=== PATIENT | female | born 1990 | race Caucasian/White ===

== ENCOUNTER 2025-09-17 05:19 | Inpatient (IN) ==
[2025-09-17 06:00] LABS: HCT - HEMATOCRIT 31.8 % (37.0-47.0); HGB - HEMOGLOBIN 10.0 g/dL (12.0-16.0); MEAN PLATELET VOLUME 9.6 fL (7.9-10.8); NRBC ABSOLUTE COUNT (AUTO) 0.00 x10^3/uL; NUCLEATED RED BLOOD CELLS AUTO 0.0 /100WBC; PLT - PLATELET COUNT 275 10^3/uL (130-450); RED CELL DISTRIBUTION WIDTH 13.7 % (12.0-15.0)
[2025-09-17] MEDS: CITRIC ACID/SODIUM CITRATE 15 ML UDC PO ONE (06:00)
[2025-09-17] MEDS: LACTATED RINGERS 1,000 ML IV SCH (06:00)
[2025-09-17 06:19] LABS: ALT ALANINE AMINOTRANSFERASE 8.0 IU/L (10-60); AST ASPARTATE AMINOTRANSFERASE 12.0 IU/L (10-42); BUN - BLOOD UREA NITROGEN 7.0 mg/dL (6-20); CARBON DIOXIDE - CO2 22.0 mmol/L (21-32); CREATININE 0.5 mg/dL (0.6-1.3); GFR - MDRD 140.0 (>89)
[2025-09-17] MEDS ORDERED: ePHEDrine 50 MG/ML VIAL IVP ONE (07:00)
[2025-09-17] MEDS ORDERED: SODIUM CHLORIDE 0.9% 10 ML VIAL ONE (07:00)
[2025-09-17] MEDS ORDERED: PHENYLEPHRINE HCL 0.5 MG/5 ML AMPULE ONE (07:00)
[2025-09-17] MEDS ORDERED: OXYTOCIN/SODIUM CHLORIDE 500 ML IV ONE (07:01)
--- NOTE | 2025-09-17 07:01 | ANESTHESIA PROCEDURE NOTE ---
Pre-Anesthesia VS, & Labs Diagnosis Surgical Diagnosis:: previous Procedure Procedure: repeat Vitals Vital Signs: Temp Pulse Resp BP Pulse Ox 36.5 C 69 18 130/93 H 97 09/17/25 06:13 09/17/25 06:13 09/17/25 06:13 09/17/25 06:13 09/17/25 05:26 NPO NPO: >8 hours Is Patient ?: Yes Lab Results Current Lab Results: Laboratory Tests 09/17/25 05:50: WBC 8.1, RBC 3.94 L, Hgb 10.0 L, Hct 31.8 L, MCV 80.7 L, MCH 25.4 L, MCHC 31.4 L, RDW 13.7, Plt Count 275, MPV 9.6, Neut # (Auto) 6.0, Lymph # (Auto) 1.3 L, [place] # (Auto) 0.6, Eos # (Auto) 0.1, Baso # (Auto) 0.0, Absolute Nucleated RBC 0.00, Nucleated RBC % 0.0, Sodium 137, Potassium 3.9, Chloride 107, Carbon Dioxide 22, Anion Gap 8.0, BUN 7, Creatinine 0.5 L, Estimated GFR (MDRD) 140, Glucose 97, Calcium 8.7, Total Bilirubin 0.3, AST 12, ALT 8 L, Alkaline Phosphatase 92, Total Protein 6.4, Albumin 3.2, Globulin 3.2, Albumin/Globulin Ratio 1.0 Lab results reviewed: Yes 09/17/25 05:50 09/17/25 05:50 Meds/Allgy Home Medications Ambulatory Orders Medication Instructions Recorded Confirmed metoclopramide HCl 5 mg tablet 5 mg PO Q6H PRN nausea and 05/22/25 09/12/25 (Reglan) vomiting #14 tabs PNV no.[id number] acid PO 05/29/25 09/12/25 Allergies Allergies Allergy/AdvReac Type Severity Reaction Status Date / Time No Known Drug Allergies Allergy Verified 09/12/25 09:10 PFSH Active Problems All Active Problems (Updated 09/10/25 @ 18:38 by Misbah Chapman MD) Headache (Acute) 36 weeks gestation of (Acute) Supervision of high risk in third trimester (Acute) Pre-eclampsia affecting , antepartum (Acute) Maternal care due to low transverse uterine scar from previous delivery (Acute) (Acute) Medical History Medical History (Updated 09/10/25 @ 18:38 by Misbah Chapman MD) Elevated BP reading w/ no diagnosis of HTN Isolated proteinuria Supervision of normal in second trimester Surgical History Surgical History (Updated 05/29/25 @ 11:06 by Vita Oneill MA) Hx laparoscopic cholecystectomy H/O: Family History Family History (Updated 05/29/25 @ 11:06 by Vita Oneill MA) Other Adopted Social History Social History (Updated 05/29/25 @ 10:58 by Vita Oneill MA) Smoking Status: Never smoker Do you dip or chew tobacco?: No Do you vape?: No Do you feel safe in your home environment?: Yes ETOH Use: None Anesthesia Exam (Expanded) Exam General: Alert, Oriented x3 and Cooperative Dental: WNL Mouth Openin Fingerbreadth Neck Mobility: Normal Mallampati classification: II Thyromental Distance: 4-6 cm Respiratory: Lungs clear, Normal breath sounds and No respiratory distress Cardiovascular: Regular rate Neurological: Normal speech Mental/Cognitive Status: Alert/Oriented X3 and Normal for patient Cognitive Status: Within normal limits Exam Exam Vital Signs: Vital Signs x48h Temp Pulse Resp BP BP Pulse Ox 09/17/25 06:13 36.5 C 69 18 130/93 H 09/17/25 05:26 36.5 C 18 130/93 H 97 Plan Plan Anesthesia Type: Spinal and Transverse Abdominis Plane (TAP) Block Regional Block: Per Surgeon's request for Post Op pain control Consent for Procedure(s) Verified and Reviewed: Yes Code Status: Attempt Resuscitation ASA Classification ASA classification: 2-Mild systemic disease Is this case an emergency?: No
--- NOTE | 2025-09-17 07:13 | HISTORY & PHYSICAL EXAMINATION ---
Admit History Visit Reason Visit Reason: Other (Scheduled repeat ) : 5 Parity: 1 : 3 Care: positive [facility] Risk/History: positive Previous Complications This : positive Pre-eclampsia Smoking Status: Former smoker Mother's Labs Mother's Blood Type: positive A Mother's RH: positive Positive GBS: positive Group B Step Negative Rubella Status: positive Immune Other Maternal History Other Maternal History: Patient is a 34 yo A3 at 37+0 wks here for scheduled repeat . She has been diagnosed with preE based on mildly elevated BP's and proteinuria. She is not on antihypertensive medications and has had no severe features. She feels well today and denies leakage of fluid, vaginal bleeding, or painful/regular contractions. G1: 2017 SAB 6 weeks G2: 2018 C/S "Prince" epidural to spinal to general. Primary c/s arreset of descent after IOL for NRFHT (records from [place], [place] reviewed: periop course complicated by bilateral hysterotomy extensions and postop anemia/tachycardia; she did not receive a blood transfusion) G3: 2021 early SAB - conceived with Letrozole G4: 2022 early SAB- conceived with Letrozole G5- Current - no ovulation induction methods but on GLP-1- baby boy "Jay." Partner/FOB: : [facility] Hx: Non significant Surgical Hx: (2018), gallbladder (2013) Social Hx: Monogamous with male partner Ander who works active duty [employer]. Stopped drinking alcohol due to . Denies current use of tobacco, marijuana or other recreational drugs. Non-smoker. Safe in current relationship. Family Hx: Adopted Allergies:NKDA Medications: PNV , unisom, B6, reglan Problems: 1. Primary C/S 2018, arrest of descent after IOL for NRFHT 2. Preeclampsia: - Elevated blood pressure without the diagnosis of hypertension (diagnosed 09/04/2025) - Proteinuria (diagnosed 08/31/2025) - Preeclampsia (diagnosed 09/06/2015 after meeting BP criteria) 3. Pelvic pain, dyspareunia, chronic constipation - assess for endometriosis, pelvic floor spasm Consults: Repeat C/S: Consult with Dr. Chapman 07/05/2025 Elevated blood pressure without diagnosis of HTN in combination with proteinuria LMP: unknown RICHELLE by LMP: U/S: @ 8.2wks dates with RICHELLE 10/08/2025 Final RICHELLE: 10/08/2025 Pre- weight: 150 BMI: 37.0 Blood type: A positive Antibody screen: negative CBC: [id number] HCT42.5 HGB 13.6 Rubella: Immune VZV: immune HBsAg: NR Hep C: NR RPR/AB-EIA: NR HIV: NR Flu: declines 07/03/2025 COVID: declines 07/03/2025 PAP: 09/2022 WNL, HPV negative GC/CT: Negative HSV: denies in self and partner Genetic screening/counselling: QNATAL advanced - negative AFP: FAS: 05/29/2025 Placenta: Anterior Cord: 3VC GWEN: 14.6cm EFW: 95.7g; 40%tile 50gm GCT: 134 TDAP: will think about Breast Pump: 07/30/2025 3rd trimester H/H PLT 11.4/36.6 274 3rd trimester RPR NR RSV: 08/31/2025 GBS: 09/04 neg Delivery plan: RCS scheduled 10/02/2025; rescheduled to 09/17 (w/ Dr. Mendoza) after diagnosis of preE contraception counselling date and plan: HPI Current : Current Para 1 Vital Signs Temperature 36.5 C 09/17/25 06:13 Pulse Rate 69 09/17/25 06:13 Respiratory Rate 18 09/17/25 06:13 Blood Pressure 130/93 H 09/17/25 06:13 O2 Saturation 97 09/17/25 05:26 NST Procedure NST Procedure: NST Procedure Start Date 09/17/25 Start Time 05:30 Stop Time 06:30 Vibroacoustic Stimulation Used No Patient States Movement Yes Meds/Allgy Home Medications Ambulatory Orders Medication Instructions Recorded Confirmed metoclopramide HCl 5 mg tablet 5 mg PO Q6H PRN nausea and 05/22/25 09/12/25 (Reglan) vomiting #14 tabs PNV no.[id number] acid PO 05/29/25 09/12/25 Allergies Allergies Allergy/AdvReac Type Severity Reaction Status Date / Time No Known Drug Allergies Allergy Verified 09/12/25 09:10 PFSH Active Problems All Active Problems (Updated 09/10/25 @ 18:38 by Misbah Chapman MD) Headache (Acute) 36 weeks gestation of (Acute) Supervision of high risk in third trimester (Acute) Pre-eclampsia affecting , antepartum (Acute) Maternal care due to low transverse uterine scar from previous delivery (Acute) (Acute) Medical History Medical History (Updated 09/10/25 @ 18:38 by Misbah Chapman MD) Elevated BP reading w/ no diagnosis of HTN Isolated proteinuria Supervision of normal in second trimester Surgical History Surgical History (Updated 05/29/25 @ 11:06 by Vita Oneill MA) Hx laparoscopic cholecystectomy H/O: Family History Family History (Updated 05/29/25 @ 11:06 by Vita Oneill MA) Other Adopted Social History Social History (Updated 05/29/25 @ 10:58 by Vita Oneill MA) Smoking Status: Never smoker Do you dip or chew tobacco?: No Do you vape?: No Do you feel safe in your home environment?: Yes ETOH Use: None Review of Systems Status of ROS: 10 or more systems reviewed and unremarkable except as noted in history and below Physical Abdominal Exam Vital Signs: Temp Pulse Resp BP Pulse Ox 36.5 C 69 18 130/93 H 97 09/17/25 06:13 09/17/25 06:13 09/17/25 06:13 09/17/25 06:13 09/17/25 05:26 General: Awake and alert, no acute distress Lungs: Normal respiratory effort Heart: Reg rate Abd: Gravid, nontender Ext: Trace edema Contraction Frequency (min/apart): Irreg, infrequent Monitoring Heart Rate Baseline: 130s Strip Review: positive Category I Vaginal Exam Membranes: positive Membranes intact Speculum Exam Speculum Exam Performed: positive No Plan for Labor Plan For Labor I expect patient to be DC'd or transferred within 96 hours.: Yes Conclusion/Plan Problem List (1) Maternal care due to low transverse uterine scar from previous delivery: Plan: at 37+0 wks with hx prior and dx of preE without severe features. - Admit for repeat - CBC, CMP obtained - Preop anbiotics: Ancef 2 gm IV OCTOR - VTE prophy: SCDs in OR; early ambulation postop - PPH risk: Mod - Avoid methergine as uterotonic. (2) Pre-eclampsia affecting , antepartum: Lab Results Lab results reviewed: Yes 09/17/25 05:50 09/17/25 05:50
[2025-09-17] MEDS ORDERED: fentaNYL 100 MCG/2 ML VIAL ONE (07:22)
[2025-09-17] MEDS ORDERED: ONDANSETRON 4 MG/2 ML VIAL IVP PRN (07:25)
[2025-09-17] MEDS ORDERED: fentaNYL 100 MCG/2 ML VIAL IVP PRN (07:25)
[2025-09-17] MEDS ORDERED: HYDROmorphone 0.5 MG/0.5 ML SYRINGE IVP PRN (07:25)
[2025-09-17] MEDS ORDERED: ATROPINE ABBOJECT 1 MG/10 ML SYRINGE IVP PRN (07:25)
[2025-09-17] MEDS ORDERED: NALOXONE 0.4 MG/ML VIAL IVP PRN ×2 (07:25→08:56)
[2025-09-17] MEDS ORDERED: ePHEDrine 50 MG/ML VIAL IVP PRN (07:25)
[2025-09-17] MEDS ORDERED: METOCLOPRAMIDE 10 MG/2 ML VIAL IVP PRN (07:25)
[2025-09-17] MEDS ORDERED: MORPHINE 2 MG/ML CARPUJECT IVP PRN (07:25)
[2025-09-17] MEDS ORDERED: ONDANSETRON 4 MG/2 ML VIAL ONE (07:47)
[2025-09-17] MEDS ORDERED: METHYLERGONOVINE 0.2 MG/ML VIAL ONE (07:48)
[2025-09-17] MEDS ORDERED: CARBOPROST TROMETHAMINE 250 MCG/ML VIAL IM ONE (07:48)
[2025-09-17] MEDS ORDERED: ACETAMINOPHEN 1,000 MG/100 ML 1,000 MG/100 ML BAG IV ONE (07:59)
[2025-09-17] MEDS ORDERED: LACTATED RINGERS 1,000 ML IV SCH (08:00)
[2025-09-17] MEDS ORDERED: ROPIVACAINE 0.5% PF 20 ML VIAL ONE (08:19)
[2025-09-17] MEDS ORDERED: KETOROLAC 30 MG/ML VIAL ONE (08:40)
[2025-09-17] MEDS ORDERED: hydrALAZINE INJ 20 MG/ML VIAL IVP PRN ×2 (08:56)
[2025-09-17] MEDS ORDERED: OXYTOCIN/SODIUM CHLORIDE 500 ML IV PRN (08:56)
[2025-09-17] MEDS ORDERED: LABETALOL 20 MG/4 ML SYRINGE IVP PRN ×3 (08:56)
[2025-09-17] MEDS ORDERED: TRANEXAMIC ACID IN NACL 1,000 MG/100 ML BAG IV PRN (08:56)
[2025-09-17] MEDS ORDERED: OXYTOCIN 10 UNIT/ML VIAL IM PRN (08:56)
[2025-09-17] MEDS ORDERED: CALCIUM CARBONATE CHEW 500 MG TABLET PO PRN (08:56)
[2025-09-17] MEDS ORDERED: CARBOPROST TROMETHAMINE 250 MCG/ML VIAL IM PRN (08:56)
[2025-09-17] MEDS: ACETAMINOPHEN 500 MG TABLET PO SCH (09:00)
--- NOTE | 2025-09-17 09:06 | OPERATIVE REPORT ---
Operative Report General Admit Date: 09/17/25 Procedure Data: Operation Date: 09/17/25 07:30 Proposed Procedures p Section(Not Applicable) - Elaine Mendoza MD Actual Procedures p Section(Not Applicable) - Elaine Mendoza MD Pre-Op Diagnosis: section Anesthesia Type Spinal Case Staff Anesthesia Provider: Stephen Diaz Assisting Provider: Lulu Ramirez Case Times Procedure Start: 09/17/25 08:06 Time out: 09/17/25 08:03 Pre-Op Diagnosis: Pre-eclampsia, prior , 37 wks Post Op Diagnosis: Same now s/p repeat LTCS Procedure Note Pathology: None Indications: 34 yo A3 at 37+0 wks with hx prior , here for repeat. She has pre- eclampsia without severe features, so delivery recommended at 37 wks. Findings: Mild fascial adhesions. No intra-peritoneal adhesions present. Lower uterine segment thinned but not dehisced. Normal-appearing ovaries and tubes. Uterus firmed with Pitocin. No lesions or masses. Viable male infant delivered from LOT position with single nuchal cord x 1. He cried on the maternal abdomen and had excellent tone and color. Placenta delivered intact and was normal in appearance. Complications: None Other Other Information/Narrative: Preoperative Diagnosis: - Pre-eclampsia without severe features - Prior low transverse - at 37 weeks gestation Postoperative Diagnosis: - Same as above now s/p repeat low transverse Procedure: Repeat low-transverse with two-layer hysterotomy closure Surgeon: Dr. Elaine Mendoza Treasury Specialist: Lulu Ramirez CNM Anesthesia: - Spinal - TAP Block Qualitative Blood Loss: 542 ml IV Fluids: 700 ml Urine Output: 350 ml Medications: - Ancef 2 gm IV - Pitocin bolus Specimen: Cord blood Indications: 34 yo A3 at 37+0 wks with hx prior , here for repeat. She has pre- eclampsia without severe features, so delivery recommended at 37 wks. Expectations and risks were discussed, and surgical consent form reviewed and signed. Findings: Mild fascial adhesions. No intra-peritoneal adhesions present. Lower uterine segment thinned but not dehisced. Normal-appearing ovaries and tubes. Uterus firmed with Pitocin. No lesions or masses. Viable male infant delivered at 0813 from LOT position with single nuchal cord x 1. Apgars were 8 at 1 minute, 10 at 5 minutes, and weight was 2951 gm. He cried on the maternal abdomen and had excellent tone and color. Placenta delivered intact and was normal in appearance. Operative Technique: The patient was taken to the operating room where spinal anesthesia was administered without difficulty. Romero catheter was inserted. The abdomen was prepped and draped in sterile fashion, and surgical Time Out performed. After confirming adequate anesthesia with an Allis clamp, a Pfannenstiel incision was created sharply 3 cm above the suprapubic bone, over her old scar. The subcutaneous tissue was incised sharply. The fascia was sharply incised at the midline, then extended laterally bluntly and with some sharp dissection at the left side. The superior rectus fascia was grasped with Fabricio clamps at the midline and tented up while the rectus muscle was bluntly and sharply dissected off posteriorly. The same was then performed at the inferior rectus fascia. The muscles were bluntly . A clear window of the anterior peritoneum was grasped and entered. This incision was then extended with gentle stretch. Dmitry retractor was placed. The lower uterine segment was incised in low transverse fashion then bluntly enlarged in a cranial-caudal direction. Clear amniotic fluid was noted at the time of membrane rupture. The infants head was grasped and delivered through the incision. Loose nuchal cord x 1 was reduced over the occiput Shoulders and corpus delivered easily thereafter. He had good tone and respiratory effort and was dried and stimulated. Cord was clamped and cut at one minute, th en he was taken to the warmer. Cord blood was obtained, then the placenta delivered by expression and uterine massage. Uterine tone was addressed with medications as noted above. The hysterotomy was closed with a running, locked suture of 0 Chromic followed by an imbricating suture of 0 Chromic. A figure of eight suture was placed at the left apex to achieve hemostasis. The peritoneal gutters were wiped, and the uterine incision re-examined and noted to be hemostatic. The peritoneum and muscles were reapproximated with running non-locked suture of 2-0 Vicryl. The rectus muscle was then examined and hemostatic after application of cautery where needed. The rectus fascia was closed with a running non-locked suture of 0 Vicryl. The subcutaneous tissue was irrigated then reapproximated with running, nonlocked 2-0 Vicryl. The skin was then closed in a subcuticular fashion using 4-0 Monocryl. Mastisol, steri- strips, and dressing were then applied. Sponge, lap, and needle count were completed and correct. The patient tolerated the procedure well, overall. TAP block was performed by Anesthesia, and she was subsequently moved to the recovery room in stable condition. Treasury Specialist Attestation: In this non-teaching hospital, a surgical instrument technician (named above) was needed to perform surgical sales representative duties. The behavioral modification assistant was critical with retraction of tissue, cutting suture, gently stretching the peritoneum and abdominal wall, applying pressure on the upper abdomen and uterus to deliver the baby, performing initial resuscitative steps for the baby on the maternal abdomen, and assisting with closure of the surgical layers and skin.
--- NOTE | 2025-09-17 09:42 | ANESTHESIA POST OP EVALUATION ---
Anesthesia Post Eval Post Anesthesia Eval Vitals: Last Vital Signs Temp 36.6 C 09/17/25 09:17 Pulse 67 09/17/25 09:37 Resp 23 09/17/25 09:37 BP 125/84 09/17/25 09:37 Pulse Ox 97 09/17/25 09:37 CV Function Including HR & BP: Stable Pain Control: Satisfactory Nausea & Vomiting: Negative Mental Status: Baseline Respiratory Status: Airway Patent Hydration Status: Satisfactory
[2025-09-17] MEDS: oxyCODONE 5 MG TABLET PO PRN (11:53)
[2025-09-17] MEDS ORDERED: KETOROLAC 30 MG/ML VIAL IVP SCH (12:00)
[2025-09-17] MEDS: SIMETHICONE CHEW 80 MG TABLET PO PRN (13:27)
[2025-09-17] MEDS: ceFAZolin (2G) 2 GM in SODIUM CHLORIDE 0.9% MINIBAG 100 ML IV ONE (13:48)
[2025-09-17] MEDS: DOCUSATE SODIUM 100 MG CAPSULE PO SCH (13:50)
[2025-09-17] MEDS: KETOROLAC 30 MG/ML VIAL IVP SCH (14:47)
[2025-09-18 06:00] LABS: HCT - HEMATOCRIT 28.2 % (37.0-47.0); HGB - HEMOGLOBIN 8.6 g/dL (12.0-16.0); MEAN PLATELET VOLUME 9.2 fL (7.9-10.8); PLT - PLATELET COUNT 211.0 10^3/uL (130-450); RED CELL DISTRIBUTION WIDTH 13.9 % (12.0-15.0)
[2025-09-18 06:30] LABS: ALT ALANINE AMINOTRANSFERASE 8.0 IU/L (10-60); AST ASPARTATE AMINOTRANSFERASE 12.0 IU/L (10-42); BUN - BLOOD UREA NITROGEN 6.0 mg/dL (6-20); CARBON DIOXIDE - CO2 24.0 mmol/L (21-32); CREATININE 0.5 mg/dL (0.6-1.3); GFR - MDRD 140.0 (>89)
[2025-09-18] MEDS: IBUPROFEN 600 MG TABLET PO SCH (08:57)
--- NOTE | 2025-09-18 13:16 | PHARMACY PROGRESS NOTE ---
Best Possible Medication History Admit Date and Time: 09/17/25 [id number] Home Medications Medication Instructions Recorded Confirmed Type metoclopramide HCl 5 mg tablet 5 mg PO Q6H PRN nausea and 05/22/25 09/18/25 Rx (Reglan) vomiting #14 tabs PNV no.[id number] acid 1 tab PO DAILY 05/29/25 History magnesium 250 mg tablet 250 mg PO HS 09/18/25 History Processed by: Pharmacy Medications reviewed in ED?: No Medication History completed: Yes Patient Interview: Completed Secondary Source(s): Insurance records [facility] Statement: As the person ultimately responsible for medication therapy, providers are able to order a medication from an existing home medication list in [facility] via the "Reconcile Routine" prior to Confirmation of that medication by client support coordinator. Such practice is discouraged except when the physician, in their clinical judgment, deems that a medical need exists for a medication without regard to pr evious use.
--- NOTE | 2025-09-18 16:00 | PROVIDER PROGRESS NOTE ---
Subjective Subjective Subjective: Subjective Patient reports she is doing well. Lochia appropriate. Denies heavy bleeding. Ambulating. Pelvic and abdominal pain well-controlled. Tolerating oral intake. Diet: Regular. Voiding without difficulty. Passing flatus. Denies BM. Patient is bonding with baby in room Breast feeding going well. Denies feeling lightheaded, dizzy or excessively fatigued. Objective General: Alert, oriented, no apparent distress. Cardiovascular: Regular rate. Regular rhythm. Lungs: No increased work of breathing. Abdomen: Uterus firm. Below umbilicus. No guarding or rebound. Extremities: No pain on palpation. No cords palpated. Distal pulses intact. Incision: Clean, dry, and intact. Bandage removed today Current Medications Current Medications Current Medications: Current Medications Generic Name Dose Route Start Last Admin Trade Name Freq PRN Reason Stop Dose Admin Acetaminophen 1,000 mg 09/17/25 09:00 09/18/25 08:58 Acetaminophen 500 Mg Tablet PO 1,000 mg Q8H ISSAC Administration Calcium Carbonate/Glycine 1,000 mg 09/17/25 08:56 Calcium Carbonate Chew 500 Mg Tablet PO Q6HR PRN Heartburn Carboprost Tromethamine 250 mcg 09/17/25 08:56 Carboprost Tromethamine 250 Mcg/Ml Vial IM .ONCE PRN Hemorrhage Diphenhydramine HCl 25 mg 09/17/25 08:56 Diphenhydramine 25 Mg Capsule PO Q6HR PRN Allergy Symptoms Docusate Sodium 200 mg 09/17/25 09:00 09/18/25 08:58 Docusate Sodium 100 Mg Capsule PO 200 mg BID ISSAC Administration Hydralazine HCl 10 mg 09/17/25 08:56 Hydralazine Inj 20 Mg/Ml Vial IVP .ONCE PRN SBP> or= 160 OR DBP> or= 110 Protocol Hydralazine HCl 5 - 20 mg 09/17/25 08:56 Hydralazine Inj 20 Mg/Ml Vial IVP Q20M PRN SBP> or= 160 OR DBP> or= 110 Protocol Ibuprofen 600 mg 09/18/25 09:00 09/18/25 14:47 Ibuprofen 600 Mg Tablet PO 600 mg Q6HR ISSAC Administration Labetalol HCl 20 - 40 mg 09/17/25 08:56 Labetalol 20 Mg/4 Ml Syringe IVP Q10M PRN SBP> or= 160 OR DBP> or= 110 Protocol Labetalol HCl 20 mg 09/17/25 08:56 Labetalol 20 Mg/4 Ml Syringe IVP .ONCE PRN SBP> or= 160 OR DBP> or= 110 Protocol Labetalol HCl 20 - 80 mg 09/17/25 08:56 Labetalol 20 Mg/4 Ml Syringe IVP Q10M PRN SBP> or= 160 OR DBP> or= 110 Protocol Nifedipine 10 - 20 mg 09/17/25 08:56 Nifedipine 10 Mg Capsule PO Q20M PRN SBP> or= 160 OR DBP> or= 110 Protocol Oxycodone HCl 5 mg 09/17/25 08:56 09/18/25 14:46 Oxycodone 5 Mg Tablet PO 5 mg Q4HR PRN Administration Severe Pain 6 -10 Simethicone 80 mg 09/17/25 08:56 09/18/25 14:47 Simethicone Chew 80 Mg Tablet PO 80 mg TID PRN Administration Gas Objective Vital Signs/Intake & Output Vital Signs: Vital Signs x48h Temp Pulse Resp BP Pulse Ox 09/18/25 13:00 37.0 C 90 16 120/83 100 09/18/25 09:07 36.7 C 90 16 126/91 H 99 Intake & Output: Intake & Output 09/15/25 09/16/25 09/17/25 09/18/25 23:59 23:59 23:59 23:59 Intake Total 100 / 100 Output Total 4300 / 4300 4 / 4 Balance -4200 / -4200 -4 / -4 Weight (kg) 187 lb 6.287 oz Lab Results 09/18/25 05:53 09/18/25 05:53 Other Labs: Lab Results x24hrs 09/18/25 Range/Units 05:53 WBC 8.9 (4.8-10.8) x10^3/uL RBC 3.45 L (4.20-5.40) 10^6/uL Hgb 8.6 L (12.0-16.0) g/dL Hct 28.2 L (37.0-47.0) % MCV 81.7 (81.0-99.0) fL MCH 24.9 L (27.0-31.0) pg MCHC 30.5 L (32.0-36.0) g/dL RDW 13.9 (12.0-15.0) % Plt Count 211 (130-450) 10^3/uL MPV 9.2 (7.9-10.8) fL Sodium 138 (135-145) mmol/L Potassium 3.7 (3.5-4.5) mmol/L Chloride 107 (101-111) mmol/L Carbon Dioxide 24 (21-32) mmol/L Anion Gap 7.0 (6-13) BUN 6 (6-20) mg/dL Creatinine 0.5 L (0.6-1.3) mg/dL Estimated GFR (MDRD) 140 (>89) Glucose 91 (74-104) mg/dL Calcium 7.9 L (8.5-10.3) mg/dL Total Bilirubin 0.2 (0.2-1.0) mg/dL AST 12 (10-42) IU/L ALT 8 L (10-60) IU/L Alkaline Phosphatase 76 (42-121) IU/L Total Protein 5.2 L (6.4-8.9) g/dL Albumin 2.7 L (3.2-5.5) g/dL Globulin 2.5 (2.1-4.2) g/dL Albumin/Globulin Ratio 1.1 (1.0-2.2) Assessment/Plan Problem List (1) care and examination of lactating mother: Impression: Routine care. Appears to be doing well. Anticipate discharge tomorrow. (2) Delivery by section: Impression: Routine postoperative care. (3) Pre-eclampsia affecting , antepartum: Impression: Blood pressure normal. No signs of worsening preeclampsia.
--- NOTE | 2025-09-19 11:20 | Discharge Summary ---
Discharge Summary Admit Date: 09/17/25 Discharge Date: 09/19/25 Discharging Provider: Mar Castro MD HOSPITAL COURSE Hospital Course: Admission Diagnosis: - SIUP at 37w0d - Preeclampsia without severe features - H/o delivery Discharge Diagnosis: - Same, delivered - Acute blood loss anemia Procedures: Repeat delivery Hospital Course: Sasha is a 34 yo who presented at 37w0d for scheduled repeat delivery in the setting of preeclampsia without severe features. Surgery was uncomplicated with an QBL of 542cc. course uncomplicated. BPs remained normal range to low mild range and no evidence of severe features of preeclampsia. Condition on Discharge: SUBJECTIVE: day 2 She feels well and would like to go home today. Pain is well controlled with current medications. The baby is doing well. Baby is feeding via . She is ambulating well, tolerating normal diet, urinating without difficulty. Flatus has been passed. Lochia is reported as normal. OBJECTIVE: Vital signs reviewed GENERAL: NAD CHEST: non labored respirations ABD: soft, appropriately TTP, fundus firm INCISION: Incision is clean and dry with steristrips in place. EXT: minimal lower extremity edema; No evidence of DVT LAB & IMAGING STUDIES: See below PLAN: Plan for discharge home with follow up in clinic in 1 week for BP and incision check. Reviewed home care instructions and medications. Patient counseled regarding signs and symptoms of infection, excessive bleeding, vaginal rest and activity restrictions. Preeclampsia precautions reviewed. Contraceptive plans to be formalized at visit . ALLERGIES Allergies Allergy/AdvReac Type Severity Reaction Status Date / Time No Known Drug Allergies Allergy Verified 09/12/25 09:10 MEDICATIONS Ambulatory Orders Medication Instructions Recorded Confirmed metoclopramide HCl 5 mg tablet 5 mg PO Q6H PRN nausea and 05/22/25 09/18/25 (Reglan) vomiting #14 tabs PNV [id number] 1 tab PO DAILY 05/29/25 magnesium 250 mg tablet 250 mg PO HS 09/18/25 acetaminophen 325 mg capsule 650 mg (2 x 325 mg) PO Q4 H 09/19/25 postoperative pain #90 caps ferrous sulfate 325 mg (65 mg 325 mg PO Q OTHER DAY #3 0 tabs 09/19/25 iron) tablet,delayed release ibuprofen 600 mg tablet 600 mg PO Q6H PRN postop jared n #90 09/19/25 tabs oxycodone 5 mg tablet 5 mg PO Q6H PRN pain #20 tab s 09/19/25 sennosides 8.6 mg capsule (senna) 8.6 mg PO DAILY PRN constipation 09/19/25 #30 caps PHYSICAL EXAM AT DISCHARGE Vital Signs: Vital Signs x48h Temp Pulse Resp BP Pulse Ox O2 Flow Rate 09/19/25 12:47 98.2 F 79 18 131/79 H 98 09/19/25 08:34 98.8 F 85 18 135/84 H 98 LABS 09/18/25 05:53 09/18/25 05:53 TIME SPENT Time Spent in Discharge (Minutes): 20 Discharge Plan Discharge Patient Disposition: Home, Self Care Prescriptions: New ibuprofen 600 mg tablet 600 mg PO Q6H PRN (Reason: postop pain) Qty: 90 0RF ferrous sulfate 325 mg (65 mg iron) tablet,delayed release (DR/EC) 325 mg PO Q OTHER DAY Qty: 30 0RF oxycodone 5 mg tablet 5 mg PO Q6H PRN (Reason: pain) Qty: 20 0RF senna 8.6 mg capsule 8.6 mg PO DAILY PRN (Reason: constipation) Qty: 30 0RF acetaminophen 325 mg capsule 650 mg PO Q4H Qty: 90 0RF Continued metoclopramide HCl [Reglan] 5 mg tablet 5 mg PO Q6H PRN (Reason: nausea and vomiting) Qty: 14 1RF magnesium 250 mg tablet 250 mg PO HS PNV [id number] 1 tab PO DAILY Activity Restrictions/Additional Instructions: - Take your blood pressure at home daily - If your blood pressure is greater than 160 systolic or 110 diastolic (160/110), then you should present to the emergency department. - If you have symptoms of severe preeclampsia, such as severe headache, vision changes, or pain in your upper right or mid abdomen, chest pain, or shortness of breath, then you should present to the emergency department. Follow up for visit and blood pressure check in one week. Print Language: Jamaican Patient Instructions: Breast Care After , After a Follow-up Care: Mar Castro MD [Primary Care Provider, Obstetrics/Gynecology]
[2025-09-19 12:48] VITALS: BP 131/79; TEMP 98.2; O2SAT 98
== END 2025-09-19 12:50 | disposition home or self-care (01) | DRG 787 ==
LOC: FBP 05:19
PROVIDERS: ADMIT Obstetrics & Gynecology; ATTEND Obstetrics & Gynecology
DX: O69.81X0 Labor and delivery complicated by cord around neck, without compression, not applicable or unspecified; O34.211 Maternal care for low transverse scar from previous cesarean delivery; O90.81 Anemia of the puerperium; Z3A.37 37 weeks gestation of pregnancy; Z87.891 Personal history of nicotine dependence; N85.8 Other specified noninflammatory disorders of uterus; D62 Acute posthemorrhagic anemia; Z37.0 Single live birth; O14.04 Mild to moderate pre-eclampsia, complicating childbirth